=== PATIENT | female | born 1995 | race Caucasian/White ===

== ENCOUNTER 2017-07-28 00:05 | Emergency (ER) | payer OTHER ==
[2017-07-28] MEDS ORDERED: KETOROLAC TROMETHAMINE 60 MG/2 ML SDV IV ONE (00:36)
[2017-07-28] MEDS ORDERED: DIPHENHYDRAMINE HCL 50 MG/ML VIAL IV ONE (00:36)
[2017-07-28] MEDS ORDERED: PROCHLORPERAZINE EDISYLATE INJ 10 MG/2 ML VIAL IV ONE (00:36)
[2017-07-28] MEDS ORDERED: ONDANSETRON 4 MG TAB.RAPDIS PO ONE (00:36)
--- NOTE | 2017-07-28 00:37 | ER Document Report ---
ED General - General Mode of Arrival: Ambulatory Information source: Patient TRAVEL OUTSIDE OF THE [place] IN LAST 30 DAYS: No <CAITLIN BEJARANO - Last Filed: 07/28/17 03:58> <ISSAC PHILIPPE - Last Filed: 07/28/17 04:00> - General Chief Complaint: Toothache Stated Complaint: TOOTHACHE Time Seen by Provider: 07/28/17 00:19 Notes: Patient is a 22-year-old female who presents to the emergency department today with multiple complaints including dental pain, sinus congestion, earache, diarrhea, vomiting, migraine headache, and neck pain. Patient states she has had her sinus congestion for four days. Patient states last night on the way home from [place] she ate sushi at an restaurant and both her and her have had diarrhea and vomiting since then. Patient also states that her dental pain stems from a fall that occurred where she hit her jaw on the ground. Patient states it feels that she is missing a chunk of her tooth. Patient states she has a history of migraine headaches and her headache today is normal for her typical migraines however she normally does not have neck pain with this. Patient describes this neck pain as a soreness over the right side of her neck with increasing pain when she moves her neck or touches it. ( CAITLIN BEJARANO) - Related Data Allergies/Adverse Reactions: No Known Allergies Allergy (Verified 07/28/17 00:06) Past Medical History - General Information source: Patient - Social History Smoking Status: Never Smoker Cigarette use (# per day): No Frequency of alcohol use: None Drug Abuse: None Lives with: Family Family History: Reviewed & Not Pertinent Patient has suicidal ideation: No Patient has homicidal ideation: No - Medical History Medical History: Negative Past Surgical History: Reports: Hx Appendectomy, Hx Oral Surgery - tonsils <CAITLIN BEJARANO - Last Filed: 07/28/17 03:58> Review of Systems - Review of Systems Constitutional: No symptoms reported EENT: See HPI, Ear pain, Nose congestion, Nose discharge, Mouth pain, Mouth swelling. denies: Throat pain Cardiovascular: No symptoms reported Respiratory: No symptoms reported Gastrointestinal: See HPI, Diarrhea, Vomiting. denies: Rectal bleeding Genitourinary: No symptoms reported Female Genitourinary: No symptoms reported Musculoskeletal: See HPI, Neck pain Skin: No symptoms reported Hematologic/Lymphatic: No symptoms reported Neurological/Psychological: See HPI, Headaches -: Yes All other systems reviewed and negative <CAITLIN BEJARANO - Last Filed: 07/28/17 03:58> Physical Exam <CAITLIN BEJARANO - Last Filed: 07/28/17 03:58> <ISSAC PHILIPPE - Last Filed: 07/28/17 04:00> - Vital signs Vitals: Temp Pulse Resp BP Pulse Ox 99.1 F 101 H 18 134/84 H 100 07/28/17 00:07 07/28/17 00:07 07/28/17 00:07 07/28/17 00:07 07/28/17 00:07 - Notes Notes: PHYSICAL EXAM GENERAL: Alert, interacts well. No acute distress. HEAD: Normocephalic, atraumatic. EYES: Pupils equal, round, and reactive to light. Extraocular movements intact. ENT: Oral mucosa moist, tongue midline. Nares patent with clear rhinorrhea, TMs intact, left serous effusion with retracted TM. Postnasal drainage, posterior oropharynx injection. Erythema surrounding nose consistent with rhinorrhea. Missing chunk of tooth #30, no erythema at the base of tooth or sign of infection. NECK: Full range of motion. Supple. Trachea midline. No posterior cervical lymphadenopathy, mild anterior cervical lymphadenopathy. Right sided neck musculature tenderness with palpation. LUNGS: Clear to auscultation bilaterally, no wheezes, rales, or rhonchi. No respiratory distress. HEART: Regular rate and rhythm. No murmurs, gallops, or rubs. ABDOMEN: Soft, suprapubic tenderness with palpation. Non-distended. Bowel sounds present in all 4 quadrants. EXTREMITIES: Moves all 4 extremities spontaneously. NEUROLOGICAL: Alert and oriented x3. Normal speech. PSYCH: Normal affect, normal mood. SKIN: Warm, dry, normal turgor. No rashes or lesions noted. (CAITLIN BEJARANO) Course - Laboratory Result Diagrams: 07/28/17 01:00 07/28/17 01:00 <CAITLIN BEJARANO - Last Filed: 07/28/17 03:58> - Laboratory Result Diagrams: 07/28/17 01:00 07/28/17 01:00 <ISSAC PHILIPPE - Last Filed: 07/28/17 04:00> - Re-evaluation Re-evalutation: 07/28/17 02:18 Patient feels much better, she is not , blood work is normal, she is received Toradol, Compazine, Benadryl and feels significantly better. Patient will be discharged home with Zofran. No evidence for meningitis as her pain is reproducible on palpation of the right side of her neck only, no midline tenderness to palpation, no left-sided neck pain, no difficulty moving her neck , no nuchal rigidity. 07/28/17 02:19 (ISSAC PHILIPPE) - Vital Signs Vital signs: Temp Pulse Resp BP Pulse Ox 99.0 F 97 16 118/72 97 07/28/17 02:30 07/28/17 02:30 07/28/17 02:30 07/28/17 02:30 07/28/17 02:30 Discharge <CAITLIN BEJARANO - Last Filed: 07/28/17 03:58> <ISSAC PHILIPPE - Last Filed: 07/28/17 04:00> - Discharge Clinical Impression: Nausea vomiting and diarrhea, Prehypertension Migraine Qualifiers: Migraine type: without aura Status migrainosus presence: with status migrainosus Intractability: intractable Qualified Code(s): G43.011 - Migraine without aura, intractable, with status migrainosus Condition: Stable Disposition: HOME, SELF-CARE Additional Instructions: Drink plenty of fluids. Return for fevers, worsening abdominal pain, intractable vomiting, worsening headache or any new or concerning symptoms. Please see a dentist for your broken tooth. In the interim please poke a hole in a Tessalon Perle with a pin and then hold the Tessalon Perles over your tooth while medication leaks out. This will numb your tooth and decrease her pain. Prescriptions: Benzonatate [Tessalon Perles 100 mg Capsule] 100 mg PO Q8HP PRN #40 capsule PRN Reason: Ondansetron [Zofran Odt 4 mg Tablet] 1 - 2 tab PO Q4H PRN #15 tab.rapdis PRN Reason: For Nausea/Vomiting Forms: Elevated Blood Pressure Referrals: MAGGI FARFAN MD [ACTIVE STAFF] - Follow up in 1 week Scribe Attestation: 07/28/17 04:00 I personally performed the services described in the documentation, reviewed and edited the documentation which was dictated to the scribe in my presence, and it accurately records my words and actions. (ISSAC PHILIPPE) Scribe Documentation - Scribe Written by Ariel:: Ariel Tam, 07/28/2017 0330 acting as scribe for :: Anna <CAITLIN BEJARANO - Last Filed: 07/28/17 03:58>
[2017-07-28] MEDS ORDERED: KETOROLAC TROMETHAMINE INJ/PF 30 MG/1 ML SDV IV ONE (01:12)
[2017-07-28 01:21] LABS: ABSOLUTE EOSINOPHILS # (AUTO) 0.2 10^3/uL (0.0-0.6); ABSOLUTE LYMPHOCYTES (AUTO) 1.9 10^3/uL (0.5-4.7); ABSOLUTE MONOCYTES (AUTO) 0.9 10^3/uL (0.1-1.4); ABSOLUTE NEUT (AUTO) 5.6 10^3/uL (1.7-8.2); BASOPHILS % (AUTO) 0.3 % (0-2); EOSINOPHILS % (AUTO) 2.4 % (0-6); HEMATOCRIT 44.5 % (36.0-47.0); HEMOGLOBIN 15.2 g/dL (12.0-15.5); LYMPHOCYTES % (AUTO) 22.5 % (13-45); MEAN CORPUSCULAR HEMOGLOBIN 32.1 pg (27.0-33.4); MEAN CORPUSCULAR HGB CONC 34.2 g/dL (32.0-36.0); MEAN CORPUSCULAR VOLUME 94 fl (80-97); MONOCYTES % (AUTO) 9.9 % (3-13); PLATELET COUNT 256 10^3/uL (150-450); RED BLOOD COUNT 4.74 10^6/uL (3.72-5.28); RED CELL DISTRIBUTION WIDTH 12.1 % (11.5-14.0); SEGMENTED NEUTROPHILS % (AUTO) 64.9 % (42-78); TOTAL CELLS COUNTED % (AUTO) 100 %; WHITE BLOOD COUNT 8.6 10^3/uL (4.0-10.5)
[2017-07-28 01:39] LABS: ALANINE AMINOTRANSFERASE 28 U/L (9-52); ALBUMIN 4.3 g/dL (3.5-5.0); ALKALINE PHOSPHATASE 54 U/L (38-126); ANION GAP 12 (5-19); ASPARTATE AMINO TRANSFERASE 25 U/L (14-36); BILIRUBIN,DIRECT 0.2 mg/dL (0.0-0.4); BILIRUBIN,TOTAL 0.6 mg/dL (0.2-1.3); BLOOD UREA NITROGEN 12 mg/dL (7-20); CALCIUM 9.7 mg/dL (8.4-10.2); CARBON DIOXIDE 28 mmol/L (22-30); CHLORIDE 103 mmol/L (98-107); GLUCOSE 97 mg/dL (75-110); LIPASE 92.9 U/L (23-300); POTASSIUM 3.8 mmol/L (3.6-5.0); SODIUM 142.6 mmol/L (137-145); TOTAL PROTEIN 7.1 g/dL (6.3-8.2)
[2017-07-28 02:33] VITALS: BP 118/72
== END 2017-07-28 02:35 | disposition home or self-care (01) ==
LOC: ER 00:05
DX: G43.011 Migraine without aura, intractable, with status migrainosus (principal); R11.2 Nausea with vomiting, unspecified; R19.7 Diarrhea, unspecified; K08.89 Other specified disorders of teeth and supporting structures; W19.XXXA Unspecified fall, initial encounter; R03.0 Elevated blood-pressure reading, without diagnosis of hypertension; R09.81 Nasal congestion; H92.09 Otalgia, unspecified ear; M54.2 Cervicalgia; J34.89 Other specified disorders of nose and nasal sinuses; R09.82 Postnasal drip
CPT/HCPCS: 99283; 96374; 96375; 36415; 83690; 84703; 85025; 80053; J1200; S0119; J0780